=== PATIENT | female | born 1970 | race African-American/Black ===

== ENCOUNTER 2019-02-08 06:09 | Day surgery (SDC) | payer OTHER ==
[2019-01-29 10:28] VITALS: BMI 32.0
[2019-02-08] MEDS ORDERED: EPINEPHrine 1:1,000 1 MG/1 ML - 30ML VIAL (INJECTION) ONE (07:18)
[2019-02-08] MEDS ORDERED: ROPIVACAINE HCL 0.5% 30ML VIAL ONE ×2 (07:19→07:24)
[2019-02-08] MEDS ORDERED: MIDAZOLAM HCL 2 MG/2 ML SINGLE DOSE VIAL ONE (07:23)
[2019-02-08] MEDS ORDERED: ONDANSETRON 4 MG/2 ML VIAL ONE ×2 (07:48→10:17)
[2019-02-08] MEDS ORDERED: KETOROLAC TROMETHAMINE 30 MG/1 ML VIAL ONE (07:48)
[2019-02-08] MEDS ORDERED: PROPOFOL 20 ML ONE ×4 (07:48)
[2019-02-08] MEDS ORDERED: ceFAZolin SODIUM 1 GM VIAL ONE (07:48)
[2019-02-08] MEDS ORDERED: SUCCINYLCHOLINE CHLORIDE 200 MG/10 ML VIAL ONE (07:48)
[2019-02-08] MEDS ORDERED: DEXAMETHASONE SOD PHOSPHATE 4 MG/1 ML VIAL ONE (07:48)
[2019-02-08] MEDS ORDERED: BUPIVACAINE HCL 0.25% 125 MG/50 ML VIAL ONE (09:58)
[2019-02-08] MEDS ORDERED: BUPIVACAINE HCL/PF 0.25% (2.5MG/ML) 10 ML VIAL IJ ONE (10:00)
[2019-02-08] MEDS ORDERED: PROMETHAZINE HCL 25 MG/1 ML VIAL IVPUSH PRN (10:21)
[2019-02-08] MEDS ORDERED: ONDANSETRON 4 MG/2 ML VIAL IVPUSH PRN (10:21)
[2019-02-08] MEDS ORDERED: oxyCODONE HCL 5 MG TABLET PO PRN ×2 (10:21)
[2019-02-08 11:04] VITALS: PULSE 74
--- NOTE | 2019-02-08 14:37 | OPR ---
Date of Procedure: 02/08/2019 Procedure: Left Shoulder- 1. Diagnostic arthroscopy. 2. Arthroscopic limited debridement of glenohumeral joint (76339) 3. Arthroscopic subacromial decompression (03247). 4. Arthroscopic rotator cuff repair: Supraspinatus (75024). 5. Arthroscopic-assisted biceps tenodesis-subpectoral (94335). Preoperative Diagnoses: 1. Rotator cuff tear (high grade, partial-thickness)-supraspinatus. 2. Rotator cuff tendinopathy 3. Biceps tendon degeneration. 4. Glenohumeral synovitis. Postoperative Diagnoses: 1. Rotator cuff tear-Supraspinatus (high grade, partial-thickness, >75% thickness) 2. Rotator cuff tendinopathy 3. Biceps tendon degeneration and tear. 4. Labral degeneration and fraying. 5. Glenohumeral synovitis. 6. Subacromial bursitis and adhesions. Surgeon: Lukas Ibarra DO Assistants: Nathaniel Almendarez DO Anesthesia: General anesthesia, IV regional with interscalene nerve block Estimated Blood Loss: Minimal Drains: None Total IV Fluids: Per anesthesia record Specimens: None Implants: [employer] 4.5mm PEEK FootPrint [place] with ultratape. Complications: None Disposition: PACU Condition: Hemodynamically stable Indications: Carolin Shah presented to us with chronic left shoulder pain that failed conservative measures, including 8 months of physical therapy, oral anti- inflammatory medication, and a subacromial injection performed by an outside physician. Her symptoms, signs, and imaging were consistent with the above noted diagnoses. She ultimately elected to proceed with surgical intervention after discussion of the risks, benefits, alternatives. We discussed risks including but not limited to, bleeding, pain, infection, scarring, damage to neurovascular structures, blood clots, pulmonary embolus, need for additional surgery, incomplete relief of pain, and incomplete return of function. She expressed understanding and wished to proceed. She underwent preoperative medical evaluation clearance and optimization prior to surgery. Procedure Details: She was identified in the preoperative area. The left shoulder was marked as the operative site and consent was completed and confirmed. A member of the anesthesia department performed an interscalene nerve block in the preoperative holding area. She was later transferred to the operating room and placed in supine position the operating room. General anesthesia was induced without difficulty. She was repositioned into beach chair with all bony prominences appropriately padded. The neck was in neutral alignment. A surgical time-out was performed identifying the correct patient, procedure, and site. Antibiotics were given within 1 hour prior to surgical incision. The upper extremity was prepped and draped in standard sterile fashion. Examination under anesthesia: Passive range of motion of the left shoulder showed forward elevation of 160, abduction 90, external rotation at side 60, SABER 90, SABIR 40. This was compared to her contralateral shoulder which shows forward elevation of 160, abduction 100 external rotation at side 60, SABER 90, SABIR 40, and internal rotation to her mid thoracic spine. Diagnostic arthroscopy: We began the procedure with the standard posterolateral portal, entered the glenohumeral joint, and an anterior portal was made within the rotator cuff interval under direct visualization with the assistance of a spinal needle. A probe was used to assist with diagnostic arthroscopy and we visualized from both posteriorly and anteriorly. Evaluation of the glenohumeral joint showed mild to moderate synovitis anteriorly. The superior labrum had a degenerative tear that was debrided back to a stable base. The anterior labrum was probed and found to be intact. The posterior labrum was probed and found to be intact. There were no loose bodies in the inferior pouch. There was no HAGL lesion. The biceps tendon showed hyperemia and fraying. The rotator cuff interval was normal. The axillary recess was empty. The subscapularis was probed and found to be intact. The articular surface of the anterior supraspinatus tendon was torn and frayed. There was also an interstitial component to the tear which extended more posteriorly. The articular surface of the infraspinatus and teres minor tendons were intact. The glenoid and humeral head showed no significant chondral defects. 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 Evaluation of the subacromial space showed moderate bursitis and adhesions. There was a small acromial spur anteriorly. There was fraying of the CA ligament. The AC joint was intact. The rotator cuff was found to be frayed. Arthroscopic limited debridement of the glenohumeral joint: We used a combination of the arthroscopic motorized shaver and radiofrequency device to perform a limited debridement inside the glenohumeral joint. The hyperemia, erythema, and synovitis of the joint and joint capsule was focally debrided. Synovitic fronds were thermally ablated. Labral fraying and degeneration was also resected and debrided to a stable edge. The articular surface of the supraspinatus that was torn and frayed was debrided back to a stable base exposing >50% of the rotator cuff footprint. A biceps tenotomy was performed and the biceps was allowed to retract into the groove for later tenodesis. Arthroscopic-assisted biceps tenodesis: We made a 2 cm incision along Kevon's lines in the axillary fold. Sharp dissection was carried out down to the level of the pectoralis major. The plane between the pectoralis major and the short head of biceps tendon was developed bluntly down to the level of the humeral bone, where we identified the long head of biceps tendon and delivered it retrograde out of the wound. The underlying soft tissue was resected and the bone was frayed with a 1/4-inch osteotome. We then selected a 1.9 SutureFix anchor and placed the anchor high within the bicipital groove underneath the pectoralis major tendon. The sutures were then passed just proximal to the musculotendinous junction of the long head of biceps in an alternating simple versus lasso loop configuration. Tying these sutures down tenodesed the tendon onto the underlying frayed humeral bone. We used an arthroscopic knot pusher to get excellent knot fixation, and then arthroscopic shoe cutter to cut the remaining length of the suture. The remaining length of the biceps tendon was resected. We confirmed our arthroscopic knots and position of the biceps tendon underneath the pectoralis major with the arthroscope. We thoroughly irrigated the wound. Arthroscopic subacromial decompression: The subacromial space was entered from posteriorly. A separate anterior-lateral portal was made for additional instrumentation and visualization. We then visualized the rotator cuff pattern as noted above, and performed our subacromial decompression in a systematic fashion from anterior to posterior and from lateral to medial, removing the bursal tissue carefully. This was done with a radiofrequency device and motorized shaver. The undersurface of the acromion was skeletonized and gently debrided to a flat smooth undersurface. There was a small anterior-inferior spur that was resected with a motorized bur. Arthroscopic rotator cuff repair: We turned our attention to rotator cuff repair of the supraspinatus. After debridement of the bursal surface, it was noted that greater than 75% of the supraspinatus was found to be torn, and the remaining tissue quality was poor. The decision was made to debride the remaining tendon revealing a full thickness supraspinatus tear. We debrided frayed tissue from the rotator cuff tendon edge. We debrided the greater tuberosity with a motorized bur to slightly decorticate it, preparing a bony bed to receive the rotator cuff tendon. We promoted some localized bone bleeding and marrow elements with an awl in the greater tuberosity. An ultratape suture was then passed in a horizontal mattress fashion through the supraspinatus with the tissue-piercing Firstpass, approximately 1.5 cm from its torn edge. We used a 4.5 mm [employer] PEEK FootPrint anchor for repair of the rotator cuff and it was placed just lateral to the greater tuberosity footprint. It had excellent fixation within the bone. This achieved good fixation of the rotator cuff into the greater tuberosity. We thoroughly irrigated the subacromial space and we removed the arthroscopic equipment. Wound closure: The arthroscopic portal incisions were closed with 3-0 Monocryl subcuticular stitch with Steri strips. The axillary incision was irrigated and closed with 2-0 Vicryl, 3-0 Monocryl subcuticular stitch, and Dermabond skin glue. The shoulder was sterilely dressed and placed in a shoulder immobilizer. Post-operative Details: I spoke with the family regarding the operation after surgery. Postoperative rehabilitation: Arthroscopic rotator cuff repair protocol. The patient will remain in a shoulder immobilizer for 4-5 weeks. Early passive range of motion okay with no limits and advance as tolerated; no pendulums. No strengthening for at least 5 months. Attestation for miller first: Dr. Nathaniel Almendarez DO acted as the miller first. There was no qualified resident or physician billing and accounting staff assistant available to do so.
[2019-02-08 14:58] VITALS: BP 128/71; TEMP 98
[2019-02-08] MEDS ORDERED: ACETAMINOPHEN 325 MG TABLET (FP) PO SCH (18:00)
== END 2019-02-08 12:25 | disposition home or self-care (01) ==
LOC: FASU 06:09
PROVIDERS: ATTEND Orthopaedic Surgery
PROC: 0RBK4ZZ Excision of Left Shoulder Joint, Percutaneous Endoscopic Approach (ICD-10-PCS; 2019-02-08)
PROC: 0LQ24ZZ Repair Left Shoulder Tendon, Percutaneous Endoscopic Approach (ICD-10-PCS; principal; 2019-02-08 08:19)
PROC: 0LS24ZZ Reposition Left Shoulder Tendon, Percutaneous Endoscopic Approach (ICD-10-PCS; 2019-02-08 08:19)
PROC: 0RNK4ZZ Release Left Shoulder Joint, Percutaneous Endoscopic Approach (ICD-10-PCS; 2019-02-08 08:19)
DX: M75.112 Incomplete rotator cuff tear or rupture of left shoulder, not specified as traumatic (principal); M75.22 Bicipital tendinitis, left shoulder; M65.812 Other synovitis and tenosynovitis, left shoulder; M75.52 Bursitis of left shoulder; M24.112 Other articular cartilage disorders, left shoulder
CPT/HCPCS: 81025; 94760